=== PATIENT | male | born 1955 | race Caucasian/White ===

== ENCOUNTER 2022-02-17 06:10 | Observation (INO) | payer MEDICARE ==
[2022-02-17 06:19] LABS: Glucose,Whole Blood 214 mg/dL (70-110)
[2022-02-17] MEDS ORDERED: SODIUM CHLORIDE 0.9% 1,000 ML IV STA ×2 (06:42→09:07)
--- NOTE | 2022-02-17 06:52 | ED ---
General Adult HPI - General Chief complaint: Neuro Symptoms/Deficit Stated complaint: Weakness Time Seen by Provider: 02/17/22 06:36 Source: patient, RN notes reviewed, old records reviewed Mode of arrival: EMS Limitations: no limitations - History of Present Illness Initial comments: Patient is a 67-year-old male with history of diabetes, hypertension, presenting to the emergency department via EMS with complaints of weakness that started when he woke up this morning. Patient states he was at a different hospital 3 days ago for a cough, he did test positive for: Miguelito. He was discharged home. He states he was doing well over the weekend, eating and drinking fluids as normal. He states he took his sleeping medication last night, he woke up this morning to use the restroom and felt like he could barely walk. Family called EMS. EMS states his glucose was in the low 50s, did give him oral glucose which did improve his symptoms. Currently patient states he feels weak, he has a mild cough. He was not vaccinated against Covid. He denies any chest pain, no shortness of breath, no abdominal pain, no nausea or vomiting. He denies any re cent fevers or chills. Denies blurred vision, trouble speaking. Patient is no further complaints. - Related Data Home Medications Medication Instructions Recorded Confirmed Atorvastatin [Lipitor] 10 mg PO DAILY 02/17/22 02/17/22 Glimepiride [Amaryl] 4 mg PO AC-BRKFST 02/17/22 02/17/22 Lisinopril-Hctz 20-12.5 mg 1 tab PO DAILY 02/17/22 02/17/22 [Zestoretic 20-12.5] amLODIPine [Norvasc] 10 mg PO DAILY 02/17/22 02/17/22 metFORMIN HCL 1,000 mg PO BID 02/17/22 02/17/22 traZODone HCL [Desyrel] 50 mg PO HS 02/17/22 02/17/22 Allergies Allergy/AdvReac Type Severity Reaction Status Date / Time No Known Allergies Allergy Verified 02/17/22 08:05 Review of Systems ROS Statement: Those systems with pertinent positive or pertinent negative responses have been documented in the HPI. ROS Other: All systems not noted in ROS Statement are negative. Past Medical History Past Medical History: Diabetes Mellitus, Hypertension History of Any Multi-Drug Resistant Organisms: None Reported Additional Past Surgical History / Comment(s): carpal tunnel and toe amputation Past Psychological History: No Psychological Hx Reported Smoking Status: Former smoker Past Alcohol Use History: None Reported Past Drug Use History: None Reported General Exam - General Exam Comments Initial Comments: GENERAL: Patient is well-developed and well-nourished. Patient is nontoxic and in no acute distress. HEAD: Atraumatic, normocephalic. EYES: Pupils equal round and reactive to light, extraocular movements intact, sclera anicteric, conjunctiva are normal. Eyelids were unremarkable. ENT: TMs normal, nares patent, oropharynx clear without exudates. Moist mucous membranes. NECK: Normal range of motion, supple without lymphadenopathy or JVD. LUNGS: Unlabored respirations. Breath sounds clear to auscultation bilaterally and equal. No wheezes rales or rhonchi. HEART: Regular rate and rhythm without murmurs, rubs or gallops. ABDOMEN: Soft, nontender, normoactive bowel sounds. No guarding, no rebound. No masses appreciated. : Deferred MUSCULOSKELETAL: Normal extremities with adequate strength and normal range of motion, no pitting or edema. No clubbing or cyanosis. Cable Weaver strength equal bilateral. NEUROLOGICAL: Patient is alert and oriented x 3. PSYCH: Normal mood, normal affect. SKIN: Warm, Dry, normal turgor, no rashes or lesions noted. Limitations: no limitations Neurological exam: Present: alert, oriented X3, CN II-XII intact Expanded Patient oriented to: Present: person, place, time Speech: Present: fluid speech Cranial nerves: EOM's Intact: Normal, Tongue Deviation: Normal, Nystagmus: Normal, Facial Sensation: Normal Cerebellar function: Finger to Nose: Normal, Heel to Ribeiro: Normal, Romberg: Normal Upper motor neuron: Marcelino Neglect: Normal, Pronator Drift: Normal Sensory exam: Upper Extremity Light Touch: Normal, Lower Extremity Light Touch: Normal Motor strength exam: RUE: 5, LUE: 5, RLE: 5, LLE: 5 Eye Response: (4) open spontaneously Motor Response: (6) obeys commands Verbal Response: (5) oriented [place] Total: 15 Course Vital Signs 02/17/22 06:25 Temperature 98.2 F Pulse Rate 90 Respiratory 16 Rate Blood Pressure 115/60 O2 Sat by Pulse 94 L Oximetry EKG Findings - EKG Comments: EKG Findings:: Sinus rhythm, no acute abnormalities. Ventricular rate 90, NH interval 188, QT 356. No previous to compare. Medical Decision Making - Medical Decision Making This 67-year-old male here via EMS with complaints of weakness. Initial glucose was 53, patient given oral glucose and symptoms improved. No acute neuro deficits on exam. Laboratory studies reveal a normal white count, sodium and potassium are low at 130/3.1 respectively, creatinine is elevated at 191 BUN is 65. Unknown if this is his baseline. Troponin is negative. Urine shows no signs of infection. Blood glucose was 66, this was rechecked and is currently 167. Chest x-ray showing mild opacities consistent with known covid. CT of the head showing no acute abnormality. I spoke with Dr. Sanchez who agrees to admission for SKYE, dehydration, weakness. - Lab Data Result diagrams: 02/17/22 07:03 02/17/22 07:03 Lab Results 02/17/22 02/17/22 02/17/22 Range/Units 06:17 07:03 07:03 WBC 9.6 (3.8-10.6) k/uL RBC 4.09 L (4.30-5.90) m/uL Hgb 11.3 L (13.0-17.5) gm/dL Hct 33.9 L (39.0-53.0) % MCV 82.9 (80.0-100.0) fL MCH 27.5 (25.0-35.0) pg MCHC 33.2 (31.0-37.0) g/dL RDW 14.5 (11.5-15.5) % Plt Count 202 (150-450) k/uL MPV 8.2 Neutrophils % 92 % Lymphocytes % 4 % Monocytes % 3 % Eosinophils % 0 % Basophils % 0 % Neutrophils # 8.9 H (1.3-7.7) k/uL Lymphocytes # 0.4 L (1.0-4.8) k/uL Monocytes # 0.3 (0-1.0) k/uL Eosinophils # 0.0 (0-0.7) k/uL Basophils # 0.0 (0-0.2) k/uL Sodium (137-145) mmol/L Potassium (3.5-5.1) mmol/L Chloride (98-107) mmol/L Carbon Dioxide (22-30) mmol/L Anion Gap mmol/L BUN (9-20) mg/dL Creatinine (0.66-1.25) mg/dL Est GFR (CKD-EPI)AfAm (>60 ml/min/1.73 sqM) Est GFR (CKD-EPI)NonAf (>60 ml/min/1.73 sqM) Glucose (74-99) mg/dL POC Glucose (mg/dL) 214 H (70-110) mg/dL POC Glu Glove Boarder ID Issa Hagen Plasma Lactic Acid Eduar (0.7-2.0) mmol/L Calcium (8.4-10.2) mg/dL Magnesium (1.6-2.3) mg/dL Total Bilirubin (0.2-1.3) mg/dL AST (17-59) U/L ALT (4-49) U/L Alkaline Phosphatase (38-126) U/L Troponin I (0.000-0.034) ng/mL Total Protein (6.3-8.2) g/dL Albumin (3.5-5.0) g/dL Urine Color Yellow Urine Appearance Clear (Clear) Urine pH 5.0 (5.0-8.0) Ur Specific [place] 1.013 (1.001-1.035) Urine Protein Trace H (Negative) Urine Glucose (UA) Negative (Negative) Urine Ketones Negative (Negative) Urine Blood Negative (Negative) Urine Nitrite Negative (Negative) Urine Bilirubin Negative (Negative) Urine Urobilinogen <2.0 (<2.0) mg/dL Ur Leukocyte Esterase Negative (Negative) 02/17/22 02/17/22 02/17/22 Range/Units 07:03 07:03 07:03 WBC (3.8-10.6) k/uL RBC (4.30-5.90) m/uL Hgb (13.0-17.5) gm/dL Hct (39.0-53.0) % MCV (80.0-100.0) fL MCH (25.0-35.0) pg MCHC (31.0-37.0) g/dL RDW (11.5-15.5) % Plt Count (150-450) k/uL MPV Neutrophils % % Lymphocytes % % Monocytes % % Eosinophils % % Basophils % % Neutrophils # (1.3-7.7) k/uL Lymphocytes # (1.0-4.8) k/uL Monocytes # (0-1.0) k/uL Eosinophils # (0-0.7) k/uL Basophils # (0-0.2) k/uL Sodium 130 L (137-145) mmol/L Potassium 3.1 L (3.5-5.1) mmol/L Chloride 90 L (98-107) mmol/L Carbon Dioxide 22 (22-30) mmol/L Anion Gap 18 mmol/L BUN 65 H (9-20) mg/dL Creatinine 1.91 H (0.66-1.25) mg/dL Est GFR (CKD-EPI)AfAm 40 (>60 ml/min/1.73 sqM) Est GFR (CKD-EPI)NonAf 35 (>60 ml/min/1.73 sqM) Glucose 66 L (74-99) mg/dL POC Glucose (mg/dL) (70-110) mg/dL POC Glu Glove Boarder ID Plasma Lactic Acid Eduar 1.5 (0.7-2.0) mmol/L Calcium 8.2 L (8.4-10.2) mg/dL Magnesium 1.7 (1.6-2.3) mg/dL Total Bilirubin 0.6 (0.2-1.3) mg/dL AST 45 (17-59) U/L ALT 26 (4-49) U/L Alkaline Phosphatase 107 (38-126) U/L Troponin I <0.012 (0.000-0.034) ng/mL Total Protein 7.0 (6.3-8.2) g/dL Albumin 4.1 (3.5-5.0) g/dL Urine Color Urine Appearance (Clear) Urine pH (5.0-8.0) Ur Specific [place] (1.001-1.035) Urine Protein (Negative) Urine Glucose (UA) (Negative) Urine Ketones (Negative) Urine Blood (Negative) Urine Nitrite (Negative) Urine Bilirubin (Negative) Urine Urobilinogen (<2.0) mg/dL Ur Leukocyte Esterase (Negative) 02/17/22 Range/Units 08:14 WBC (3.8-10.6) k/uL RBC (4.30-5.90) m/uL Hgb (13.0-17.5) gm/dL Hct (39.0-53.0) % MCV (80.0-100.0) fL MCH (25.0-35.0) pg MCHC (31.0-37.0) g/dL RDW (11.5-15.5) % Plt Count (150-450) k/uL MPV Neutrophils % % Lymphocytes % % Monocytes % % Eosinophils % % Basophils % % Neutrophils # (1.3-7.7) k/uL Lymphocytes # (1.0-4.8) k/uL Monocytes # (0-1.0) k/uL Eosinophils # (0-0.7) k/uL Basophils # (0-0.2) k/uL Sodium (137-145) mmol/L Potassium (3.5-5.1) mmol/L Chloride (98-107) mmol/L Carbon Dioxide (22-30) mmol/L Anion Gap mmol/L BUN (9-20) mg/dL Creatinine (0.66-1.25) mg/dL Est GFR (CKD-EPI)AfAm (>60 ml/min/1.73 sqM) Est GFR (CKD-EPI)NonAf (>60 ml/min/1.73 sqM) Glucose (74-99) mg/dL POC Glucose (mg/dL) 147 H (70-110) mg/dL POC Glu Glove Boarder ID [facility] Plasma Lactic Acid Eduar (0.7-2.0) mmol/L Calcium (8.4-10.2) mg/dL Magnesium (1.6-2.3) mg/dL Total Bilirubin (0.2-1.3) mg/dL AST (17-59) U/L ALT (4-49) U/L Alkaline Phosphatase (38-126) U/L Troponin I (0.000-0.034) ng/mL Total Protein (6.3-8.2) g/dL Albumin (3.5-5.0) g/dL Urine Color Urine Appearance (Clear) Urine pH (5.0-8.0) Ur Specific [place] (1.001-1.035) Urine Protein (Negative) Urine Glucose (UA) (Negative) Urine Ketones (Negative) Urine Blood (Negative) Urine Nitrite (Negative) Urine Bilirubin (Negative) Urine Urobilinogen (<2.0) mg/dL Ur Leukocyte Esterase (Negative) Disposition Clinical Impression: SKYE (acute kidney injury), Hypokalemia, Dehydration, Weakness Disposition: ADMITTED IP TO THIS HOSP Condition: Stable Referrals: Miguelito Sanchez MD [Primary Care Provider] - 1-2 days Decision Date: 02/17/22 Decision Time: 08:19
[2022-02-17 07:14] LABS: Basophils % (A) 0 %; Eosinophils % (A) 0 %; HCT 33.9 % (39.0-53.0); HGB 11.3 gm/dL (13.0-17.5); Lymphocytes # (A) 0.4 k/uL (1.0-4.8); Lymphocytes % (A) 4 %; MCH 27.5 pg (25.0-35.0); MCHC 33.2 g/dL (31.0-37.0); MCV 82.9 fL (80.0-100.0); Mean Platelet Volume 8.2; Monocytes # (A) 0.3 k/uL (0-1.0); Monocytes % (A) 3 %; Neutrophils # (A) 8.9 k/uL (1.3-7.7); Neutrophils % (A) 92 %; Platelet Count 202 k/uL (150-450); RBC 4.09 m/uL (4.30-5.90); RDW 14.5 % (11.5-15.5); WBC 9.6 k/uL (3.8-10.6)
[2022-02-17 07:18] LABS: Appearance,Urine Clear (Clear); Bilirubin,Urine Negative (Negative); Blood,Urine Negative (Negative); Color,Urine Yellow; Glucose,Urine (UA) Negative (Negative); Ketones,Urine Negative (Negative); Leukocyte Esterase,Urine Negative (Negative); Nitrite,Urine Negative (Negative); Protein,Urine Trace (Negative); Specific Gravity,Urine 1.013 (1.001-1.035); Urobilinogen,Urine <2.0 mg/dL (<2.0)
[2022-02-17 07:27] LABS: Albumin 4.1 g/dL (3.5-5.0); Calcium 8.2 mg/dL (8.4-10.2); Magnesium 1.7 mg/dL (1.6-2.3); Potassium 3.1 mmol/L (3.5-5.1); Total Bilirubin 0.6 mg/dL (0.2-1.3)
--- NOTE | 2022-02-17 07:38 | CT ---
EXAMINATION TYPE: CT brain wo con DATE OF EXAM: 02/17/2022 COMPARISON: None HISTORY: 67-year-old male with Weakness, trouble ambulating TECHNIQUE: Examination was done in axial plane without intravenous contrast. Coronal and sagittal r econstructions performed. CT DLP: 1044.4 mGycm Automated exposure control for dose reduction was used. FINDINGS: There is no evidence of acute intracranial hemorrhage, acute ischemic changes, mass, mass-effect, or extra-axial fluid collection. There is no effacement of cerebral sulci or basal subarachnoid cister ns. There is no hydrocephalus. There is no midline shift. Gonzales-white matter distinction is preserv ed. Mild cerebral cortical volume loss. A 3.1 cm mucosal retention cyst along the floor of right maxillary sinus. Rightward nasal septal cooper ation. Trace mucosal thickening ethmoid air cells. Some mild fluid trapped within the right mastoid a ir cells. Orbits and globes are intact. IMPRESSION: Mild age-related cerebral cortical atrophy. No acute intracranial abnormality seen.
--- NOTE | 2022-02-17 07:38 | XR ---
EXAMINATION TYPE: XR chest 1V portable DATE OF EXAM: 02/17/2022 7:31 AM COMPARISON: None TECHNIQUE: XR chest 1V portable Frontal view of the chest. CLINICAL INDICATION:Male, 67 years old with history of weakness, covid + 02/14; FINDINGS: Lungs/Pleura: There is no evidence of pleural effusion or pneumothorax. Minimal bibasilar streaky ai rspace opacities. Pulmonary vascularity: Unremarkable. Heart/mediastinum: Cardiomediastinal silhouette is prominent in size. Musculoskeletal: No acute osseous pathology. IMPRESSION: Minimal bibasilar streaky airspace opacities which may represent known Covid versus atelectasis.
[2022-02-17] MEDS ORDERED: NALOXONE 0.4 MG/ML 1 ML VIAL IV PRN (08:12)
[2022-02-17] MEDS ORDERED: ACETAMINOPHEN TAB 325 MG TAB PO PRN (08:12)
[2022-02-17] MEDS ORDERED: POTASSIUM CHLORIDE ER 20 MEQ TAB.ER PO STA (08:15)
[2022-02-17 08:17] LABS: Glucose,Whole Blood 147 mg/dL (70-110)
[2022-02-17] MEDS ORDERED: DEXTROSE 50% SYRINGE 50 ML IVP PRN (09:32)
[2022-02-17 11:50] LABS: Glucose,Whole Blood 288 mg/dL (70-110)
[2022-02-17] MEDS: INSULIN ASPART (NovoLOG) 100 UNIT/ML VIAL SQ SCH ×3 (11:52→21:59)
[2022-02-17 13:45] LABS: Glucose,Whole Blood 297 mg/dL (70-110)
[2022-02-17 16:42] LABS: Glucose,Whole Blood 212 mg/dL (70-110)
[2022-02-17] MEDS: traZODone HCL 50 MG TAB PO SCH (21:41)
[2022-02-17 21:45] LABS: Glucose,Whole Blood 181 mg/dL (70-110)
[2022-02-18 07:31] LABS: Glucose,Whole Blood 152 mg/dL (70-110)
[2022-02-18] MEDS: INSULIN ASPART (NovoLOG) 100 UNIT/ML VIAL SQ SCH ×4 (08:27→20:30)
[2022-02-18] MEDS: amLODIPine 10 MG TAB PO SCH (08:28)
[2022-02-18] MEDS: ATORVASTATIN 10 MG TAB PO SCH (08:28)
[2022-02-18 11:28] LABS: African American GFR (CKD) 77 (>60 ml/min/1.73 sqM); Anion Gap 10 mmol/L; Blood Urea Nitrogen 30 mg/dL (9-20); Calcium 8.4 mg/dL (8.4-10.2); Carbon Dioxide 29 mmol/L (22-30); Chloride 91 mmol/L (98-107); Glucose 237 mg/dL (74-99); Non-African American GFR(CKD) 67 (>60 ml/min/1.73 sqM); Potassium 3.9 mmol/L (3.5-5.1); Sodium 130 mmol/L (137-145)
[2022-02-18 12:11] LABS: Glucose,Whole Blood 219 mg/dL (70-110)
[2022-02-18] MEDS: predniSONE 20 MG TAB PO SCH (14:18)
[2022-02-18] MEDS ORDERED: Magnesium Replacement Protocol 1 EACH MISC MISCELLANE PRN (17:18)
--- NOTE | 2022-02-18 17:23 | P.HPIM ---
History of Present Illness H&P Date: 02/18/22 Chief Complaint: Weakness, dehydration, recent covid This is a 67-year-old gentleman who presented to [facility] approximately 3 days ago, tested positive for covid and discharged home, the patient with past medical history of diabetes, hypertension. Brought him via EMS with complaints of increased weakness, cough. EMS reported blood sugar in the low 50s, administering glucose. Denies nausea vomiting or diarrhea. Denies abdominal pain. Denies any chest pain, palpitations. Reports productive cough. Afebrile. Positive chills. Maintaining O2 sats in the 90s on room air. Afebrile, T-max 99, Normal WBC. Brain CT were no acute intracranial abnormality. Chest x-ray reporting minimal basilar streaky airspace opacity's with known Covid. EKG reporting sinus rhythm, troponin negative. UA negative. Review of Systems ROS Statement: Those systems with pertinent positive or pertinent negative responses have been documented in the HPI. ROS Other: All systems not noted in ROS Statement are negative. Past Medical History Past Medical History: Cancer, Diabetes Mellitus, Hyperlipidemia, Hypertension Additional Past Medical History / Comment(s): NIDDM type II, cancerous polyp/lesion (pt unsure which) cauterized in bowel History of Any Multi-Drug Resistant Organisms: None Reported Additional Past Surgical History / Comment(s): R great toe injury with amputation, R carpal tunnel release, colonoscopy Past Anesthesia/Blood Transfusion Reactions: No Reported Reaction Smoking Status: Former smoker - Past Family History Father Additional Family Medical History / Comment(s): ETOH abuse Mother Additional Family Medical History / Comment(s): ETOH abuse Medications and Allergies Home Medications Medication Instructions Recorded Confirmed Type Atorvastatin [Lipitor] 10 mg PO DAILY 02/17/22 02/17/22 History Glimepiride [Amaryl] 4 mg PO AC-BRKFST 02/17/22 02/17/22 History Lisinopril-Hctz 20-12.5 mg 1 tab PO DAILY 02/17/22 02/17/22 History [Zestoretic 20-12.5] amLODIPine [Norvasc] 10 mg PO DAILY 02/17/22 02/17/22 History metFORMIN HCL 1,000 mg PO BID 02/17/22 02/17/22 History traZODone HCL [Desyrel] 50 mg PO HS 02/17/22 02/17/22 History Allergies Allergy/AdvReac Type Severity Reaction Status Date / Time No Known Allergies Allergy Verified 02/17/22 08:05 Physical Exam Vitals: Vital Signs Temp Pulse Pulse Resp BP BP Pulse Ox 02/18/22 15:00 98.0 F 86 20 124/70 94 L 02/18/22 08:00 18 02/18/22 07:00 98.8 F 101 H 18 149/79 93 L 02/18/22 01:47 90 18 02/18/22 01:44 98.9 F 90 18 129/81 93 L 02/17/22 23:51 99.0 F 94 18 138/73 93 L 02/17/22 20:00 98.9 F 103 H 14 123/84 94 L Intake and Output 02/18/22 02/18/22 02/18/22 06:59 14:59 22:59 Other: Voiding Method Urinal # Voids 2 4 # Bowel Movements 1 PHYSICAL EXAM: VITAL SIGNS: As above GENERAL: Sitting up at side of bed, no acute distress HEENT: Conjunctivae normal. eyes normal. NECK: No JVD. No thyroid enlargement. No LNs CARDIOVASCULAR: S1, S2 regular. No murmur RESPIRATION: Unlabored, Breath sounds diminished in the bases. Minimal rhonchi . ABDOMEN: Soft, nontender . No guarding. no masses palpable. No ascites, No hepatosplenomegaly.Bowel sounds heard. LEGS: No edema. no swelling PSYCHIATRY: Alert and oriented X3, mood and affect normal. NERVOUS SYSTEM: Cranial N 2-12 grossly normal. Skin: Warm and dry, no rash Results CBC & Chem 7: 02/17/22 07:03 02/18/22 10:54 Labs: Abnormal Lab Results - Last 24 Hours (Table) 02/17/22 02/18/22 02/18/22 Range/Units 21:44 07:31 10:54 Sodium 130 L (137-145) mmol/L Chloride 91 L (98-107) mmol/L BUN 30 H (9-20) mg/dL Glucose 237 H (74-99) mg/dL POC Glucose (mg/dL) 181 H 152 H (70-110) mg/dL 02/18/22 Range/Units 12:10 Sodium (137-145) mmol/L Chloride (98-107) mmol/L BUN (9-20) mg/dL Glucose (74-99) mg/dL POC Glucose (mg/dL) 219 H (70-110) mg/dL Thrombosis Risk Factor Assmnt - Choose All That Apply Any of the Below Risk Factors Present?: Yes Each Factor Represents 1 point: Obesity (BMI >25) Other Risk Factors: Yes Each Risk Factor Represents 2 Points: Age 61-74 years, Malignancy Other congenital or acquired thrombophilia - If yes, enter type in comment: No Thrombosis Risk Factor Assessment Total Risk Factor Score: 5 Thrombosis Risk Factor Assessment Level: High Risk Assessment and Plan Assessment: SKYE, improved with IV fluid hydration Dehydration Recent COVID Hypoglycemia COPD Hypokalemia, resolved Hypomagnesemia Plan: Continue on current medication regime ,monitoring and symptomatic treatment. Close monitoring of Accu-Cheks, insulin sliding scale. IV fluid hydration. Steroids plus COVID regimine ordered. Magnesium replacement. Discharge planning in progress for tomorrow to [facility]. The impression and plan of care has been dictated as directed. : I performed a history and examination of this patient, discussed the same with the dictator. I agree with the dictator's note ,documented as a scribe. Any additional findings or plans will be noted.
[2022-02-18 17:28] LABS: Glucose,Whole Blood 295 mg/dL (70-110)
[2022-02-18] MEDS: CHOLECALCIFEROL 25 MCG (1000 IU) TABLET PO SCH (18:20)
[2022-02-18] MEDS: ZINC SULFATE 220 MG CAP PO SCH (18:21)
[2022-02-18 19:19] LABS: Glucose,Whole Blood 412 mg/dL (70-110)
[2022-02-18] MEDS ORDERED: INSULIN ASPART (NovoLOG) 100 UNIT/ML VIAL SQ ONE (19:30)
[2022-02-18] MEDS: traZODone HCL 50 MG TAB PO SCH (20:29)
[2022-02-18] MEDS: ASCORBIC ACID 500 MG TAB PO SCH (20:29)
[2022-02-19 07:50] LABS: Glucose,Whole Blood 193 mg/dL (70-110)
[2022-02-19 08:08] VITALS: BP 125/79; PULSE 69; RESP 18; TEMP 98.4
[2022-02-19] MEDS: predniSONE 20 MG TAB PO SCH (08:20)
[2022-02-19] MEDS: amLODIPine 10 MG TAB PO SCH (08:20)
[2022-02-19] MEDS: CHOLECALCIFEROL 25 MCG (1000 IU) TABLET PO SCH (08:20)
[2022-02-19] MEDS: ATORVASTATIN 10 MG TAB PO SCH (08:20)
[2022-02-19] MEDS: ASCORBIC ACID 500 MG TAB PO SCH (08:20)
[2022-02-19] MEDS: ZINC SULFATE 220 MG CAP PO SCH (08:21)
[2022-02-19] MEDS: INSULIN ASPART (NovoLOG) 100 UNIT/ML VIAL SQ SCH ×2 (08:21→12:31)
[2022-02-19 09:43] LABS: Anion Gap 12.3 mmol/L (10.00-18.00); BUN/Creat Ratio 22.73 Ratio (12.00-20.00); Calcium 8.5 mg/dL (8.7-10.3); Carbon Dioxide 23.7 mmol/L (20.0-27.5); Non-African American GFR(CKD) 68.1 (60.0-200.0); Potassium 4.1 mmol/L (3.5-5.5)
--- NOTE | 2022-02-19 10:47 | P.DS ---
Providers Date of admission: 02/17/22 08:12 Expected date of discharge: 02/19/22 Attending physician: Miguelito Sanchez MD Primary care physician: Miguelito Sanchez MD Hospital Course: Final Diagnoses: SKYE secondary to dehydration, decreased oral intake, improved with IV fluid hydration Recent COVID Hypoglycemia, secondary to decreased oral intake, resolved Mild hyponatremia secondary to all above. COPD Hypokalemia, resolved Hypomagnesemia, resolved Hospital course: This is a 67-year-old gentleman who presented to [facility] approximately 3 days ago, tested positive for covid and discharged home, the patient with past medical history of diabetes, hypertension. Brought him via EMS with complaints of increased weakness, cough. EMS reported blood sugar in the low 50s, administering glucose. Denies nausea vomiting or diarrhea. Denies abdominal pain. Denies any chest pain, palpitations. Reports productive cough. Afebrile. Positive chills. Maintaining O2 sats in the 90s on room air. Afebrile, T-max 99, Normal WBC. Brain CT were no acute intracranial abnormality. Chest x-ray reporting minimal basilar streaky airspace opacity's with known Covid. EKG reporting sinus rhythm, troponin negative. UA negative. Maintained on IV fluid hydration, steroids plus Covid regimine. Electrolytes replaced. Significant clinical improvement. Sitting up in chair, reports feels better. Denies chest pain, palpitations or shortness of breath. Maintaining O2 sats of 95% on room air. Afebrile. Sodium 1:30. Remains off Zestoretic at this time and blood pressures controlled. Patient will be discharged to subacute rehab today in stable condition with guarded prognosis. Case management is provided patient with living situation option/resources upon discharge from subacute rehab. The impression and plan of care has been dictated as directed. : I performed a history and examination of this patient, discussed the same with the dictator. I agree with the dictator's note ,documented as a scribe. Any additional findings or plans will be noted. Patient Condition at Discharge: Stable Plan - Discharge Summary Discharge Rx Participant: No New Discharge Prescriptions: New Zinc Sulfate [Orazinc] 220 mg PO DAILY cap Cholecalciferol [Vitamin D3 (25 Mcg = 1000 Iu)] 25 mcg PO DAILY tab predniSONE 10 mg PO DIRECTED #30 tab Ascorbic Acid [Vitamin C] 500 mg PO BID tab Continue amLODIPine [Norvasc] 10 mg PO DAILY Atorvastatin [Lipitor] 10 mg PO DAILY traZODone HCL [Desyrel] 50 mg PO HS metFORMIN HCL 1,000 mg PO BID Glimepiride [Amaryl] 4 mg PO AC-BRKFST Discontinued Lisinopril-Hctz 20-12.5 mg [Zestoretic 20-12.5] 1 tab PO DAILY Discharge Medication List Atorvastatin [Lipitor] 10 mg PO DAILY 02/17/22 [History] Glimepiride [Amaryl] 4 mg PO AC-BRKFST 02/17/22 [History] amLODIPine [Norvasc] 10 mg PO DAILY 02/17/22 [History] metFORMIN HCL 1,000 mg PO BID 02/17/22 [History] traZODone HCL [Desyrel] 50 mg PO HS 02/17/22 [History] Ascorbic Acid [Vitamin C] 500 mg PO BID tab 02/19/22 [Rx] Cholecalciferol [Vitamin D3 (25 Mcg = 1000 Iu)] 25 mcg PO DAILY tab 02/19/22 [Rx] Zinc Sulfate [Orazinc] 220 mg PO DAILY cap 02/19/22 [Rx] predniSONE 10 mg PO DIRECTED #30 tab 02/19/22 [Rx] Follow up Appointment(s)/Referral(s): [facility] [REFERRING] - 1-2 Days Miguelito Sanchez MD [Primary Care Provider] - 3 Days [facility] Nurse, [NON-STAFF] - 1-2 Days Activity/Diet/Wound Care/Special Instructions: Zestoretic currently on hold; mild Hyponatremia ( NA130), BP controlled BMP in 3 days Discharge/Stand Alone Forms: Community Resources, Personal Container Finisher Discharge Disposition: TRANSFER TO SNF/ECF
[2022-02-19 12:01] LABS: Glucose,Whole Blood 307 mg/dL (70-110)
== END 2022-02-19 13:56 ==
LOC: EC 06:10 → 6NMEDSUR 08:12
PROVIDERS: ADMIT Family Medicine; ATTEND Family Medicine
DX: N17.9 Acute kidney failure, unspecified (principal); E86.0 Dehydration; E11.649 Type 2 diabetes mellitus with hypoglycemia without coma; E87.6 Hypokalemia; I10 Essential (primary) hypertension; U07.1 COVID-19; J44.9 Chronic obstructive pulmonary disease, unspecified; E78.5 Hyperlipidemia, unspecified; E83.42 Hypomagnesemia; J34.2 Deviated nasal septum; Z79.899 Other long term (current) drug therapy; Z79.84 Long term (current) use of oral hypoglycemic drugs; Z87.891 Personal history of nicotine dependence; Z81.1 Family history of alcohol abuse and dependence; Z89.411 Acquired absence of right great toe; Z28.310 Unvaccinated for COVID-19
CPT/HCPCS: 96361; 96360; 99285; 36415; 97530; 97162; 97166; 80053; 80048 ×2; 83605; 83735 ×2; 84484; 85025; 81003; 83036; 71045; 70450; G0378 ×3; J7512 ×2